=== PATIENT | female | born 1945 | race African-American/Black ===

== ENCOUNTER 2018-06-17 11:51 | Inpatient (IN) | payer MEDICARE, MEDICAID ==
[~2018-06-17] VITALS: Ht 157.5 cm; Wt 50.3 kg
[2018-06-17] MEDS ORDERED: SODIUM CHLORIDE 0.9% 1,000 ML IV ONE ×2 (12:51→14:54)
[2018-06-17] MEDS ORDERED: ONDANSETRON HCL 4MG/2ML INJ IV STA (12:52)
[2018-06-17] MEDS ORDERED: NA PHOS,M-B/NA PHOS,DI-BA ENEMA 118ML PR ONE (13:00)
[2018-06-17] MEDS ORDERED: MAGNESIUM CITRATE 300ML SOLUTION PO ONE (13:00)
[2018-06-17] MEDS ORDERED: LACTULOSE 20G/30ML UDC PO ONE (13:00)
[2018-06-17 13:03] LABS: BASOPHILS % 0.7 % (0.0-2.0); EOSINOPHILS % 3.4 % (0.0-5.0); HEMATOCRIT. 37.6 % (36.0-48.0); HEMOGLOBIN. 12.1 g/dL (12.0-16.0); LYMPHOCYTES % 12.6 % (20.0-50.0); MEAN CORPUSCULAR HEMOGLOBIN 30.4 pg (28.0-32.0); MEAN CORPUSCULAR VOLUME 94.8 fL (81.0-99.0); MEAN PLATELET VOLUME 9.2 fl (7.4-10.4); MONOCYTES % 12.4 % (2.0-8.0); NEUTROPHILS % 70.9 % (40.0-76.0); PLATELET 147 x1000/uL (130-400); RED BLOOD CELL COUNT 3.97 mill/uL (4.2-5.4); RED CELL DISTRIBUTION WIDTH 19.2 % (11.6-14.6)
[2018-06-17 13:05] LABS: CHLORIDE 112 mEq/L (98-107)
[2018-06-17 13:07] LABS: INR 1.2; PROTHROMBIN TIME 11.9 sec (9.6-11.0)
[2018-06-17 14:48] LABS: CLARITY URINE CLEAR (CLEAR); COLOR URINE YELLOW (YELLOW); KETONES URINE TRACE (NEGATIVE); LEUKOCYTE ESTERASE URINE NEGATIVE (NEGATIVE); NITRITE URINE NEGATIVE (NEGATIVE); OCCULT BLOOD URINE NEGATIVE (NEGATIVE); PROTEIN URINE NEGATIVE (NEGATIVE); SPECIFIC GRAVITY URINE 1.017 (1.005-1.030)
[2018-06-17] MEDS ORDERED: ACETAMINOPHEN 325MG TABLET PO ONE (15:15)
[2018-06-17 21:00] VITALS: BP_SYST 100; BP_SYST 98; BP_DIAS 69
[2018-06-17] MEDS ORDERED: ONDANSETRON HCL 4MG/2ML INJ IV PRN (22:40)
[2018-06-17] MEDS: SODIUM CHLORIDE 0.45% 1,000 ML IV SCH (23:24)
[2018-06-18] VITALS: BP 102/60
[2018-06-18] MEDS: MORPHINE SULFATE 4 MG/ML CPJ (NOT FOR IM USE) IV PRN ×3 (00:25→20:52)
[2018-06-18 04:00] VITALS: BP 110/72
[2018-06-18] MEDS: BLOOD SUGAR DIAGNOSTIC STRIP TEST SCH ×4 (06:08→20:31)
[2018-06-18] MEDS: INSULIN LISPRO 100 UNITS/ML SUBCUT SCH ×4 (06:08→20:40)
[2018-06-18] MEDS ORDERED: DEXTROSE 50% WATER 50ML SYRINGE IV PRN (07:10)
[2018-06-18 07:48] LABS: HEMATOCRIT. 33.4 % (36.0-48.0); HEMOGLOBIN. 10.8 g/dL (12.0-16.0); MEAN CORPUSCULAR HEMOGLOBIN 30.4 pg (28.0-32.0); MEAN CORPUSCULAR VOLUME 94.4 fL (81.0-99.0); MEAN PLATELET VOLUME 9.6 fl (7.4-10.4); PLATELET 144 x1000/uL (130-400); RED BLOOD CELL COUNT 3.54 mill/uL (4.2-5.4); RED CELL DISTRIBUTION WIDTH 18.3 % (11.6-14.6)
[2018-06-18 08:00] VITALS: BP 130/68
[2018-06-18] MEDS: SODIUM CHLORIDE 0.45% 1,000 ML IV SCH ×2 (08:39→16:12)
[2018-06-18] MEDS ORDERED: ACETAMINOPHEN 325MG TABLET PO PRN (10:00)
[2018-06-18] MEDS ORDERED: ACETAMINOPHEN 650MG/20.3ML UDC GT PRN (10:00)
[2018-06-18] MEDS ORDERED: ACETAMINOPHEN 650MG SUPP PR PRN (10:00)
[2018-06-18] MEDS ORDERED: NA PHOS,M-B/NA PHOS,DI-BA ENEMA 118ML PR PRN (10:00)
[2018-06-18] MEDS ORDERED: GUAIFENESIN 200MG/10ML SUGAR FREE UDC PO PRN (10:00)
[2018-06-18] MEDS ORDERED: DIPHENHYDRAMINE 50MG/ML VIAL IV PRN (10:00)
[2018-06-18] MEDS ORDERED: DOCUSATE SODIUM 100MG CAPSULE PO PRN (10:00)
[2018-06-18] MEDS ORDERED: CLONIDINE 0.1MG TABLET PO PRN (10:00)
[2018-06-18] MEDS ORDERED: IPRATROPIUM/ALBUTEROL 0.5-3(2.5)MG/3ML NEB INH PRN (10:00)
[2018-06-18] MEDS ORDERED: MAGNESIUM/ALUMINUM HYDROXIDE/SIMETHICONE 30ML UDC PO PRN (10:00)
[2018-06-18] MEDS ORDERED: LEVOFLOXACIN 500MG PREMIX 100 ML IV SCH (11:00)
[2018-06-18 12:00] VITALS: BP 90/55
[2018-06-18] MEDS ORDERED: IPRATROPIUM/ALBUTEROL 0.5-3(2.5)MG/3ML NEB INH SCH (12:00)
[2018-06-18] MEDS: ENOXAPARIN 40MG/0.4ML SYR SUBCUT SCH (12:33)
[2018-06-18] MEDS: SODIUM CHLORIDE 0.9% INJ 3ML FLUSH IVF SCH ×2 (12:33→21:00)
[2018-06-18] MEDS: IPRATROPIUM/ALBUTEROL 0.5-3(2.5)MG/3ML NEB HHN SCH ×2 (14:06→20:59)
[2018-06-18 16:00] VITALS: BP 118/55
[2018-06-18 20:00] VITALS: BP 121/67
[2018-06-18 20:14] LABS: VITAMIN B12 SERUM 410 pg/mL (211-911)
[2018-06-18] MEDS: BUSPIRONE HCL 5MG TABLET PO SCH (20:31)
[2018-06-18 21:44] LABS: PLATELET ESTIMATE NORMAL
[2018-06-19] VITALS (7 sets, daily range): BP systolic 129–180; BP diastolic 64–99
[2018-06-19] MEDS: IPRATROPIUM/ALBUTEROL 0.5-3(2.5)MG/3ML NEB HHN SCH ×3 (01:15→12:52)
[2018-06-19] MEDS: MORPHINE SULFATE 4 MG/ML CPJ (NOT FOR IM USE) IV PRN (01:52)
[2018-06-19] MEDS: SODIUM CHLORIDE 0.45% 1,000 ML IV SCH ×2 (04:33→14:45)
[2018-06-19] MEDS: SODIUM CHLORIDE 0.9% INJ 3ML FLUSH IVF SCH ×2 (06:21→13:29)
[2018-06-19] MEDS: BLOOD SUGAR DIAGNOSTIC STRIP TEST SCH ×3 (06:22→17:08)
[2018-06-19] MEDS: INSULIN LISPRO 100 UNITS/ML SUBCUT SCH ×3 (06:44→17:08)
[2018-06-19 09:25] LABS: BASOPHILS % 0.6 % (0.0-2.0); CHLORIDE 110 mEq/L (98-107); EOSINOPHILS % 2.2 % (0.0-5.0); HEMATOCRIT. 39.6 % (36.0-48.0); HEMOGLOBIN. 12.8 g/dL (12.0-16.0); MEAN CORPUSCULAR HEMOGLOBIN 30.6 pg (28.0-32.0); MEAN CORPUSCULAR VOLUME 94.9 fL (81.0-99.0); MEAN PLATELET VOLUME 8.9 fl (7.4-10.4); MONOCYTES % 7.4 % (2.0-8.0); NEUTROPHILS % 78.8 % (40.0-76.0); PLATELET 160 x1000/uL (130-400); RED BLOOD CELL COUNT 4.17 mill/uL (4.2-5.4)
[2018-06-19 09:37] LABS: LDL CHOLESTEROL 103 mg/dL (5-100)
[2018-06-19 09:39] LABS: HDL CHOLESTEROL 72 mg/dL (40-59)
[2018-06-19] MEDS: BUSPIRONE HCL 5MG TABLET PO SCH (09:47)
[2018-06-19] MEDS: ENOXAPARIN 40MG/0.4ML SYR SUBCUT SCH (09:47)
[2018-06-19] MEDS ORDERED: LEVOFLOXACIN 250MG PREMIX 50 ML IV SCH (11:00)
[2018-06-19] MEDS ORDERED: LEVOFLOXACIN 250MG TABLET PO SCH (12:30)
== END 2018-06-19 18:30 | disposition home health service (06) | DRG 682 ==
LOC: ER 11:51 → 8WST 16:52 → EDBEDREQ 16:58 → EDBEDREQTM 16:58 → ENRESERV 18:52
PROVIDERS: ADMIT Family Medicine; ATTEND Family Medicine
DX: N17.9 Acute kidney failure, unspecified (principal); G93.41 Metabolic encephalopathy; I69.354 Hemiplegia and hemiparesis following cerebral infarction affecting left non-dominant side; K80.20 Calculus of gallbladder without cholecystitis without obstruction; E86.0 Dehydration; I10 Essential (primary) hypertension; J45.909 Unspecified asthma, uncomplicated; E11.9 Type 2 diabetes mellitus without complications; F03.90 Unspecified dementia, unspecified severity, without behavioral disturbance, psychotic disturbance, mood disturbance, and anxiety; R26.9 Unspecified abnormalities of gait and mobility; G89.29 Other chronic pain; D64.9 Anemia, unspecified; Z90.49 Acquired absence of other specified parts of digestive tract; Z95.0 Presence of cardiac pacemaker; Z88.6 Allergy status to analgesic agent; Z87.891 Personal history of nicotine dependence
CPT/HCPCS: 36415; 71045; 74176; 80048; 80061; 82607; 82962; 92523; 92610; 94640; 97162; 97166; 99285; C1893; J1650; J1956; J2270; J2405; J7030; J7620